=== PATIENT | female | born 1995 | race Caucasian/White ===

== ENCOUNTER 2018-10-23 16:34 | Emergency (ER) | payer BC, OTHER ==
[~2018-10-23] VITALS: Ht 182.9 cm; Wt 65.8 kg
--- NOTE | 2018-10-23 16:42 | NUR ---
Dr Seay into eval patient
[2018-10-23 16:59] LABS: *URINE HCG, QUAL NEGATIVE (NEGATIVE)
[2018-10-23 17:14] LABS: BASOPHILS # (AUTO) 0.1 K/uL (0.0-8.0); BASOPHILS % (AUTO) 0.9 % (0.0-2.0); EOSINOPHILS # (AUTO) 0.1 K/uL (0.0-0.7); HEMATOCRIT 38.8 % (31.2-41.9); HEMOGLOBIN 13.3 g/dL (10.9-14.3); MEAN CORPUSCULAR HEMOGLOBIN 31.6 uug (24.7-32.8); MEAN CORPUSCULAR HGB CONC 34 g/dL (32.3-35.6); MEAN CORPUSCULAR VOLUME 92.5 fL (75.5-95.3); MONOCYTES # (AUTO) 0.9 K/uL (2.0-10.0); MONOCYTES % (AUTO) 10.1 % (0.0-11.0); NEUTROPHILS # (AUTO) 5.6 K/uL (1.8-8.9); PLATELET COUNT (AUTO) 229 K/uL (179-408); WHITE BLOOD COUNT (AUTO) 8.6 K/uL (3.8-11.8)
[2018-10-23 17:21] LABS: POTASSIUM 3.3 mmol/L (3.5-5.1)
--- NOTE | 2018-10-23 17:42 | NUR ---
Patient requesting medication for acid reflux. Dr Seay aware
[2018-10-23] MEDS ORDERED: PANTOPRAZOLE SODIUM 40 MG TABLET.DR PO ONE ×2 (17:45→17:46)
--- NOTE | 2018-10-23 17:49 | NUR ---
IV removed. Catheter intact and site benign. Pressure and 4x4 gauze applied to site. No bleeding noted.
[2018-10-23 17:50] VITALS: BP 120/67
== END 2018-10-23 17:50 | disposition home or self-care (01) ==
LOC: ER 16:36
DX: F41.9 Anxiety disorder, unspecified (principal); R42 Dizziness and giddiness; R61 Generalized hyperhidrosis; Z88.0 Allergy status to penicillin
CPT/HCPCS: 36415; 71045; 84703; 85025; 93005; A4663